=== PATIENT | female | born 1935 | race Two or more races ===

== ENCOUNTER 2017-05-19 21:40 | Emergency (ER) | payer MEDICAID ==
[~2017-05-19] VITALS: Ht 160 cm; Wt 71.2 kg
[2017-05-19] MEDS ORDERED: HYDROmorphone 2 MG/ML VIAL IM ONE (23:00)
[2017-05-19] MEDS ORDERED: ONDANSETRON ODT 4 MG TAB.RAPDIS. PO ONE (23:00)
[2017-05-19] MEDS ORDERED: HYDR-971 PO (23:31)
--- NOTE | 2017-05-19 23:31 | PHYS DOC ---
Past Medical History Past Medical History: Depression, Diabetes-Type II, Glaucoma, High Cholesterol , Hypertension, Stroke, Other Additional Past Medical Histor: R. side def. 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 Patient reports that she was walking with her walker and she fell backwards and landed on her buttocks. Patient is currently complaining of pain to her buttock area as well as pain to her abdomen ever since the fall. Patient denies any localized discomfort. Patient reports that she has been able to get up and bear weight after the fall. Patient presented by EMS. Patient does have a history of a stroke in the past the family reports that she was off balance secondary to her stroke. Patient reports currently she is at her baseline mental status. Patient denies any head trauma or loss of consciousness. Patient denies any pain to her back. Patient denies any C-spine T-spine or L-spine discomfort. Patient has any weakness to her upper or lower extremities. Patient has any loss of bowel or bladder function. Patient does have a history significant for hypertension as well. Review of systems Constitutional: Denies fever or chills Eyes: Denies change in visual acuity, redness, or eye pain All other review systems are negative except as documented in the history of present illness portion. Physical exam Constitutional: Well developed, well nourished, no acute distress, non-toxic appearance. HENT: Normocephalic, atraumatic, bilateral external ears normal, oropharynx moist, no oral exudates, nose normal. Eyes: conjunctiva normal, no discharge. Neck: Normal range of motion, no tenderness, supple, no stridor. Cardiovascular:Heart rate regular rhythm, Lungs & Thorax: Bilateral breath sounds clear to auscultation Abdomen: Bowel sounds normal, soft, no tenderness, no masses, no pulsatile masses. Skin: Warm, dry, Back: No tenderness, Extremities: No tenderness, no cyanosis, Neurologic: Alert and oriented X 3, Psychologic: Affect normal, judgement normal, mood normal. Patient's ER physical exam is significant for tenderness to palpation to her abdomen and pelvic region. Patient also has tenderness palpation to her buttock. Patient has no C-spine T-spine or L-spine tenderness to palpation. Patient has full range of motion to her lower extremities without any discomfort. Patient has full range of motion to her upper 70s without any pain or discomfort. All bones are palpated patient has no tenderness to discomfort with palpation of all bones. X-ray of the pelvis reveals no acute fracture. As interpreted by the ER physician. X-ray of of the abdomen reveals nonspecific gas pattern. No distention. No other significant abnormality. Interpreted by ER physician. Assessment and plan This is a 82-year-old female who presents here today for evaluation of a fall. Patient's family is at her bedside. Patient's x-rays workup is been unremarkable. Patient be discharged home with pain medicines and was instructed to follow-up with her primary care physician in 2-3 days. Current Medications Current Medications Current Medications Medications (Trade) Dose Ordered Sig/Reece Start Time Stop Time Status Last Admin Dose Admin Hydromorphone HCl (Dilaudid) 1 mg 1X ONCE 05/19/17 23:00 05/19/17 23:01 DC 05/19/17 23:18 1 MG Ondansetron HCl (Zofran Odt) 4 mg 1X ONCE 05/19/17 23:00 05/19/17 23:01 DC 05/19/17 23:18 4 MG Allergies Allergies Allergies Coded Allergies Type Severity Reaction Last Updated Verified No Known Drug Allergies 05/19/17 No Current Patient Data Vital Signs Vital Signs Date Time Temp Pulse Resp B/P (MAP) Pulse Ox O2 Delivery O2 Flow Rate FiO2 05/19/17 23:23 58 19 160/106 (124) 97 Room Air 05/19/17 21:40 98.5 98.5 EKG EKG [] Radiology/Procedures Radiology/Procedures [] Course & Med Decision Making Course & Med Decision Making Pertinent Labs and Imaging studies reviewed. (See chart for details) [] Dragon Disclaimer Dragon Disclaimer This electronic medical record was generated, in whole or in part, using a voice recognition dictation system. Departure Departure Impression: Primary Impression: Fall Additional Impressions: Abdominal pain Pain in pelvis Disposition: HOME, SELF-CARE Condition: IMPROVED Referrals: NON,STAFF (PCP) Patient Instructions: Abdominal Pain (Nonspecific), Fall Prevention and Home Safety, Hip Injury Scripts Hydrocodone/Apap 5-325 (NORCO 5-325 TABLET) 1 Each Tablet 1 TAB PO QID Y for PAIN, #10 TAB Prov: QUINCY MIRAMONTES MD 05/19/17 Problem Qualifiers QUINCY MIRAMONTES MD May 19, 2017 23:31
[2017-05-19 23:42] VITALS: BP 128/67
[2017-05-20] MEDS ORDERED: ONDANSETRON ODT 4 MG TAB.RAPDIS. PO ONE (00:30)
--- NOTE | 2017-05-20 08:14 | RAD ---
Three-view acute abdominal series. History: Abdominal pain after a fall. 3 views were taken for acute abdominal series. Lungs are clear on the PA chest. Heart is normal in size. There is no effusion. Spine view the abdomen shows a bowel gas pattern is normal. There is no bowel obstruction. The pelvis was not completely evaluated. There are no abnormal calcifications. Decubitus view of the abdomen does not show evidence of free air or abnormal air-fluid levels. Impression: 1. No acute chest disease. 2. No bowel obstruction or acute finding noted in the abdomen. 3. The pelvis was not fully evaluated.
--- NOTE | 2017-05-20 08:15 | RAD ---
Pelvis one view. History: Abdominal pain, fall Single view was taken of the pelvis. A pelvic fracture is not identified. Bowel pattern of the pelvis is normal. Hips appear normal without fracture. Impression: 1. No pelvic fracture noted.
== END 2017-05-20 00:37 | disposition home or self-care (01) ==
LOC: ER 21:40
DX: R10.9 Unspecified abdominal pain (principal); R10.2 Pelvic and perineal pain; E78.5 Hyperlipidemia, unspecified; I10 Essential (primary) hypertension; E11.39 Type 2 diabetes mellitus with other diabetic ophthalmic complication; H40.9 Unspecified glaucoma; R53.1 Weakness; Z86.73 Personal history of transient ischemic attack (TIA), and cerebral infarction without residual deficits; W18.39XA Other fall on same level, initial encounter; Y93.01 Activity, walking, marching and hiking; Y99.8 Other external cause status; Y92.89 Other specified places as the place of occurrence of the external cause
CPT/HCPCS: 72170; 74022; 96372; 99284; J1170; Q0162